=== PATIENT | female | born 1940 | race Two or more races ===

== ENCOUNTER 2018-08-09 09:20 | Outpatient (CLI) | payer OTHER ==
[~2018-08-09 09:20] MED LIST: CENTRUM SILVER1 EAC3; DETROL2 MG; FOLGARD TABLET1 EACH; METFORMIN HCL500 MG
== END 2018-08-09 09:27 | disposition home or self-care (01) ==
LOC: RX STUDY 09:20
DX: R13.0 Aphagia (principal); M50.321 Other cervical disc degeneration at C4-C5 level; M50.322 Other cervical disc degeneration at C5-C6 level

== ENCOUNTER 2019-04-09 12:08 | Outpatient (CLI) | payer OTHER | END 2019-04-09 12:30 | disposition home or self-care (01) | LOC: TOM 12:08 | DX: R91.8 Other nonspecific abnormal finding of lung field (principal) ==

== ENCOUNTER 2019-06-26 09:40 | Outpatient (CLI) | payer OTHER | END 2019-06-26 09:53 | disposition home or self-care (01) | LOC: NUCLEAR 09:40 | DX: R91.1 Solitary pulmonary nodule (principal) | CPT/HCPCS: 78816; A9552 ==

== ENCOUNTER 2024-12-17 09:35 | Outpatient (CLI) | payer OTHER | END 2024-12-17 09:37 | disposition home or self-care (01) | LOC: TOM 09:35 | PROVIDERS: ATTEND Internal Medicine | DX: R91.1 Solitary pulmonary nodule (principal) | CPT/HCPCS: 71270; Q9965 ==

== ENCOUNTER 2025-07-22 09:58 | Outpatient (CLI) | payer OTHER | END 2025-07-22 10:01 | disposition home or self-care (01) | LOC: MRI 09:58 | PROVIDERS: ATTEND Internal Medicine | DX: G30.0 Alzheimer's disease with early onset (principal) | CPT/HCPCS: 70552; Q9965 ==